=== PATIENT | female | born 1995 | race Two or more races ===

== ENCOUNTER 2018-03-26 02:51 | Day surgery (SDC) | payer OTHER ==
[2018-03-26 03:41] VITALS: BP 114/70; TEMP 97.8; BMI 29.4
--- NOTE | 2018-03-26 07:30 | PRG ---
DATE OF SERVICE: 03/26/2018 PRIMARY BEVERAGE MANAGER: Dr. Margaret Melo CHIEF COMPLAINT: Decreased movement. HISTORY OF PRESENT ILLNESS: The patient is a 22-year-old G2, P1 female with an intrauterine pregnanc y at 35 weeks and 3 days who is presenting to Labor and Delivery for decreased movement. She r eports that she has not felt the baby move throughout the day and has been concerned and came in for evaluation. The patient expressed no other complaints at this time. She did say earlier that she wa s having some numbness in her hands. The patient denies uterine contractions, vaginal bleeding, ross ge in discharge, urinary urgency or frequency, any recent illness or fall. She does have some nausea at times. No chest pain, shortness of breath, headache, no new rashes. PAST MEDICAL HISTORY: Negative. PAST SURGICAL HISTORY: Tonsillectomy. SOCIAL HISTORY: Denies drug, alcohol or tobacco use during the . REVIEW OF SYSTEMS: Per HPI. ALLERGIES: No known drug allergies. REVIEW OF SYSTEMS: Per HPI. PHYSICAL EXAMINATION: VITAL SIGNS: Blood pressure is 104/64, heart rate of 72, respiratory rate 18, satting 96-97% on room air, temperature 97.8. GENERAL: She appears to be in no acute distress. She is alert and oriented, cooperative and pleasan t to interact with. HEENT: Normocephalic, atraumatic. ABDOMEN: Soft, nontender. EXTREMITIES: Nontender, nonedematous. GENITOURINARY: exam has been deferred. heart tracing for decreased movement was performed for approximately 1 hour, baseline is noted to be in the 1-teens to 120s with moderate long-term variability, positive accelerations, no de celerations and nothing on the tocometer. ASSESSMENT AND PLAN: The patient is a 22-year-old G2, P1 female with an intrauterine at 35 weeks and 3 days, presenting for decreased movement. The patient has a reactive NST and categ ory 1 tracing. Reassurance has been given to the patient. She is being discharged to home and has be en encouraged to keep her appointment with Dr. Margaret Melo. Dr. Melo has been notified of this e ncounter and agrees with the plan.
== END 2018-03-26 04:43 | disposition home or self-care (01) ==
LOC: L&D/OP 02:51
PROVIDERS: ATTEND Obstetrics & Gynecology
DX: O36.8130 Decreased fetal movements, third trimester, not applicable or unspecified (principal); Z3A.35 35 weeks gestation of pregnancy; Z79.899 Other long term (current) drug therapy
CPT/HCPCS: 59025; 99282

== ENCOUNTER 2018-04-23 05:49 | Inpatient (IN) | payer OTHER, MEDICAID ==
[~2018-04-23 05:49] MED LIST: Bicitra 30 ML UDCUP PO SCH; CEFAZOLIN/Water 2 GM/20 ML SYRINGE SLOW IVP SCH; Docusate 100 MG CAP PO PRN; Ondansetron PF 4 MG/2 ML Vial IVP PRN; Promethazine HCl 25 MG/ML VIAL IM PRN; Zolpidem Tartrate 5 MG TAB PO PRN
[2018-04-23 06:22] VITALS: BMI 29.1
[2018-04-23] MEDS: Lactated Ringer's 1,000 ML IV SCH ×2 (06:29→21:42)
[2018-04-23 06:35] LABS: Hemoglobin 9.6 g/dL (12.0-16.0); Mean Corpuscular HGB CONC 33.3 g/dL (32.0-36.0); Mean Corpuscular Volume 84.2 fl (81.0-99.0); Mean Platelet Volume 7.8 fL (7.4-10.4); Platelet Count 319 thou/uL (130-400); Red Blood Cell (RBC) Count 3.44 mill/uL (4.20-5.40); White Blood Cell (WBC) Count 7.1 thou/uL (4.8-10.8)
[2018-04-23] MEDS ORDERED: Bupivacaine 0.75% W/DEXTROSE 8.25% 2 ML AMP ONE (06:58)
[2018-04-23] MEDS ORDERED: ePHEDrine/0.9% NaCl/PF SYRINGE 50 mg/10 ml ONE (07:00)
[2018-04-23] MEDS ORDERED: Morphine PF 1 MG/ML SYR ONE (07:00)
[2018-04-23] MEDS ORDERED: Oxytocin 10 UNITS/ML VIAL ONE (07:00)
[2018-04-23 07:06] LABS: Syphilis Antibody Nonreactive (Nonreactive); Syphilis Antibody Index 0.06 S/CO (<1.00 Non-Reactive)
[2018-04-23] MEDS ORDERED: Lidocaine 1% (PF) 30 ML VIAL ONE (07:12)
[2018-04-23 07:23] LABS: HBSAg Index 0.22 S/CO (0-0.99); Hep B Surf Ag Non-Reactive S/CO (NonReactive)
[2018-04-23] MEDS ORDERED: PHENYLEPHRINE-NS 100 MCG/ML 10 ML SYRINGE ONE (07:41)
[2018-04-23] MEDS ORDERED: Fentanyl 100 MCG/2 ML VIAL ONE (08:02)
[2018-04-23] MEDS ORDERED: HYDROmorphone 2 MG/ML VIAL SLOW IVP PRN (08:49)
[2018-04-23] MEDS ORDERED: Ondansetron HCl/PF 4 MG/2 ML Vial IVP PRN (08:49)
[2018-04-23] MEDS ORDERED: L&D-Morphine 4 MG/ML VIAL SLOW IVP PRN (08:49)
[2018-04-23] MEDS ORDERED: Meperidine HCl/PF 25 MG/ML VIAL SLOW IVP PRN (08:49)
[2018-04-23] MEDS ORDERED: Eucerin (Mineral Oil/Petrolatum,White) 30 gm Jar TOP PRN (08:50)
[2018-04-23] MEDS ORDERED: Naloxone HCl 0.4 mg/ml Vial IV PRN (08:50)
[2018-04-23] MEDS ORDERED: Promethazine HCl 25 MG/ML VIAL IM PRN (08:50)
[2018-04-23] MEDS ORDERED: diphenhydrAMINE 50 MG/ML VIAL IVP PRN (08:50)
[2018-04-23] MEDS ORDERED: Promethazine HCl 25 MG SUPP PR PRN (08:50)
[2018-04-23] MEDS ORDERED: Naloxone HCl 0.4 mg/ml Vial IVP PRN ×2 (08:50)
[2018-04-23] MEDS ORDERED: Ondansetron PF 4 MG/2 ML Vial IVP PRN ×2 (08:50→11:48)
[2018-04-23] MEDS ORDERED: Communication Order-Pharmacy FS SCH (09:00)
[2018-04-23] MEDS ORDERED: Ketorolac Tromethamine 30 MG/ML VIAL IVP SCH (09:00)
[2018-04-23] MEDS: Ketorolac Tromethamine 30 MG/ML VIAL IVP PRN ×3 (09:27→22:11)
[2018-04-23] MEDS ORDERED: Adacel (T-DAP) 0.5 ML VIAL IM ONE (11:48)
[2018-04-23] MEDS ORDERED: diphenhydrAMINE 25 MG CAP PO PRN (11:48)
[2018-04-23] MEDS ORDERED: Measles/Mumps/Rubella 10 MCG/0.5 ML VIAL SC ONE (11:48)
[2018-04-23] MEDS ORDERED: NS / Oxytocin 40 units/1000ml 1,000 ML IV SCH (11:48)
[2018-04-23] MEDS ORDERED: Lanolin Ointment 7 GM TUBE TOP PRN (11:48)
[2018-04-23] MEDS: Docusate Calcium (SURFAK) 240 MG CAP PO SCH ×2 (12:38→21:44)
[2018-04-23] MEDS: Ferrous Sulfate 325 MG TAB PO SCH ×2 (12:39→21:44)
[2018-04-23] MEDS: Prenatal Vitamin 1 TAB PO SCH (12:39)
[2018-04-23] MEDS ORDERED: Sodium Chloride 0.9% 10 ML ONE (22:32)
[2018-04-24] MEDS: Simethicone Chewable 80 MG TAB PO PRN ×2 (09:51→17:16)
[2018-04-24] MEDS: Prenatal Vitamin 1 TAB PO SCH (09:51)
[2018-04-24] MEDS: Docusate Calcium (SURFAK) 240 MG CAP PO SCH ×2 (09:51→20:56)
[2018-04-24] MEDS: Ferrous Sulfate 325 MG TAB PO SCH (09:51)
[2018-04-24] MEDS: HYDROcodone/Acetaminophen 5/325 mg Tablet PO PRN ×3 (09:51→20:53)
[2018-04-24] MEDS: Ibuprofen 800 MG TAB PO SCH ×2 (14:01→20:55)
[2018-04-25] MEDS: Ferrous Sulfate 325 MG TAB PO SCH ×2 (03:36→10:05)
[2018-04-25] MEDS: HYDROcodone/Acetaminophen 5/325 mg Tablet PO PRN ×2 (04:37→10:05)
[2018-04-25] MEDS: Ibuprofen 800 MG TAB PO SCH ×2 (06:12→14:36)
[2018-04-25 08:04] VITALS: BP 107/72; TEMP 97.9
[2018-04-25] MEDS: Prenatal Vitamin 1 TAB PO SCH (10:04)
[2018-04-25] MEDS: Docusate Calcium (SURFAK) 240 MG CAP PO SCH (10:05)
--- NOTE | 2018-05-02 13:46 | DN ---
DATE OF SERVICE: 04/23/2018 ADMITTING DIAGNOSES: 1. A 22-year-old G2, P1 at 39 weeks and 3 days with a scheduled repeat low transverse secti on. 2. Gestational anemia. 3. Late to care. 4. Group B Streptococcus negative. POSTOPERATIVE DIAGNOSES: 1. A 22-year-old G2, P1 at 39 weeks and 3 days with a scheduled repeat low transverse secti on. 2. Gestational anemia. 3. Late to care. 4. Group B Streptococcus negative. 5. Liveborn female weighing 6 pounds 6 ounces with Apgars of 8 and 9 at 1 and 5 minutes respectively . SURGEON: Margaret Melo M.D. SUBSTATION MECHANIC: Roel Aguilar M.D. ESTIMATED BLOOD LOSS: 500 mL ANESTHESIA: Spinal. CLINICAL HISTORY: This patient is a 22-year-old G2, P1 who presented later in her for care . She had an uneventful aside from an ortho injury to her left humerus from a traumatic fa ll, which required surgery in the second trimester. The patient underwent surgery under general anes thesia without any difficulties, however, had some other social issues that made it difficult for her to make it to appointments. The patient had several missed and rescheduled appointments throughout the . The patient had a history of a trial of labor for her first with rest for C PD. It was discussed that most likely the same would happen for this . The patient wished to proceed with a scheduled repeat low transverse section. The risks, benefits and possible complications were discussed for the procedure and the patient wished to proceed. DETAILS OF PROCEDURE: The patient was taken to the operating room where spinal anesthesia was obtain ed. She was laid in the supine position with a leftward tilt and she was prepped and draped and a Fo deniz catheter was placed with drainage of clear urine. After testing for adequate anesthesia, an inci crystal was made over the previous incision and carried down to the fascia. The fascia was nicked in th e midline and incision was extended bilaterally with sharp dissection. The Leonela clamps were used x 2 to elevate the superior fascial edge off the rectus muscles. Then the attention was turned down to the inferior edge where in similar fashion, the fascia was off the pyramidalis and rectus muscles. The rectus was in the midline and the peritoneum was then breached with the surge on's fingers. This incision was extended with a combination of sharp dissection and blunt traction. The bladder blade was then placed. A sweep over the anterior uterine surface revealed no adhesions. A bladder flap was created with Metzenbaum scissors and pickups and the bladder blade was placed po sterior to this bladder flap. The incision was then made over the lower uterine segment to the layer of the amnion and amniotomy was performed with clear fluid. The incision was then extended and the surgeon's hand was placed to deliver the head through the incision. Once the head was delivered, the re was noted a loose nuchal cord, which was reduced at the incision. The anterior shoulder followed by the posterior shoulder followed by the remainder of the infant's body was delivered. The cord was doubly clamped and cut and the infant cried spontaneously. The infant was shown to the parents and then placed into the bassinet for the Neonatology team in attendance to the delivery to tend to her. The uterus was then exteriorized after removal of the placenta intact with a 3-vessel cord and clean sed of all debris with a dry lap. Moist lap was used to anchor the uterus superiorly and the incisio n was closed in a running locking fashion with excellent hemostasis. An imbricating closure was then performed and then the bladder flap was closed in a running fashion. The gutters were cleansed of a ll debris. The anterior surface was then coated with Seprafilm in 4 pieces and the uterus was then p laced back into the abdomen and the peritoneum was closed in a running fashion and rectus muscles wer e reapproximated with [id number] interrupted sutures. Once this was performed, the fascia was c losed in a running fashion and the subcutaneous tissues were then cleansed with irrigation. The blee ding from the left subcutaneous fat was corrected with Bovie cautery and the fat was then reapproxima devyn in interrupted sutures with a 2-0 plain gut to close the space. The skin was then closed in a running fashion with 4-0 Monocryl with excellent hemostasis. Steri-Strips and Mastisol were place d for reinforcement and a Telfa with 2 padded Tegaderms were placed over the incision. The patient t olerated the procedure well. All needle, sponge, lap and instrument counts were correct x2 at the en d of the procedure. She was cleansed and redraped and expressed prior to transfer to [facility] and to her recovery room for continued care. The patient recovered with her infant. Again, it was a fem quin, weighing 6 pounds 6 ounces with Apgars of 8 and 9 at 1 and 5 minutes respectively. There were n o other issues surrounding this delivery.
== END 2018-04-25 19:25 | disposition home or self-care (01) | DRG 766 ==
LOC: L&D 05:49 → 3SW 11:51
PROVIDERS: ADMIT Obstetrics & Gynecology; ATTEND Obstetrics & Gynecology
PROC: 10D00Z1 Extraction of Products of Conception, Low, Open Approach (ICD-10-PCS; principal; 2018-04-23)
DX: O34.211 Maternal care for low transverse scar from previous cesarean delivery (principal); O26.893 Other specified pregnancy related conditions, third trimester; O99.02 Anemia complicating childbirth; O69.81X0 Labor and delivery complicated by cord around neck, without compression, not applicable or unspecified; D64.9 Anemia, unspecified; Z3A.39 39 weeks gestation of pregnancy; Z37.0 Single live birth
CPT/HCPCS: 51702; 85027; 86780; 86850; 86900; 86901; 87340; 90707; J1885; J2001; J2274; J2590; J3010; J3490

== ENCOUNTER 2018-12-18 23:30 | Day surgery (SDC) | payer OTHER ==
[2018-12-18 23:59] VITALS: BP 109/67; TEMP 98.9; BMI 29.0
--- NOTE | 2018-12-19 07:19 | SS ---
DATE OF ADMISSION: 12/18/2018 DATE OF DISCHARGE: 12/19/2018 REGULAR PHYSICIAN: Margaret Melo MD EVALUATING PHYSICIAN: Yogesh Reyes MD CHIEF COMPLAINT: Decreased movement. HISTORY OF PRESENT ILLNESS: Ms. Xie is a 23-year-old G3, P2-0-0-2 with an estimated date of confinement of 03/21/2018, who presents complaining of decreased movement over the evening. She denies ruptured membranes or vaginal bleeding. She had spoken with Dr. Aguilar over the phone and had tried kick counts at home , but it only felt that her baby moved a couple of times. She was instructed to come here for evaluation. Her care has been with Dr. Melo and she reports having had some small amount of 2nd trimester bleeding. PAST OBSTETRICAL HISTORY: Includes two previous sections, both at term. PAST MEDICAL HISTORY: None. PAST SURGICAL HISTORY: x2, shoulder surgery, and tonsillectomy. CURRENT MEDICATIONS: 1. vitamins. 2. Iron. ALLERGIES: NO KNOWN ALLERGIES. SOCIAL HISTORY: Denies tobacco or alcohol use. FAMILY HISTORY: Unremarkable. REVIEW OF SYSTEMS: Denies nausea, vomiting, fever, chills, vaginal bleeding, or ruptured membranes. PHYSICAL EXAMINATION: In triage, VITAL SIGNS: Stable and she is afebrile. GENERAL: She is well-appearing and in no acute distress. ABDOMEN: Soft, nontender, and gravid. PELVIC: Deferred. heart rate tracing is reassuring with no deceleration seen. Good [id number] variability is seen. No significant uterine contractions were seen. ASSESSMENT: 1. 26-6/7th week intrauterine . 2. Reassuring heart rate tracing. PLAN: The patient will be dismissed to home. She was given complete precautions. I did communicate with Dr. Aguilar, who agrees with the plan. Job ID: [id number] MTDD
== END 2018-12-19 00:35 | disposition home or self-care (01) ==
LOC: L&D/OP 23:30
PROVIDERS: ATTEND Obstetrics & Gynecology
DX: O36.8120 Decreased fetal movements, second trimester, not applicable or unspecified (principal); Z3A.26 26 weeks gestation of pregnancy; Z79.899 Other long term (current) drug therapy
CPT/HCPCS: 99283

== ENCOUNTER 2019-02-15 11:43 | Day surgery (SDC) | payer OTHER ==
[2019-02-15 12:23] VITALS: BP 114/66; TEMP 98.1
--- NOTE | 2019-02-15 12:46 | PDOC.LDHP ---
Labor and Delivery H&P Chief complaint: other (Headache) HPI: 23 yo @ 35.1 weeks presents for CC of headache. Pt reports headache has been present for one week and is not improved with tylenol. Reports headache unilateral on rt side and throbbing in nature. No associated weakness, numbness or tingling. Pt denies h/o migraines and has not had any headache issues thus far during . Currently rates pain 4-5/10. Additionally, pt reports some vvaginal bleeding she noticed when wiping after urination. She reports the bleeding has resolved and has not noted any further bleeding since AM. Reports pos movement and strip is very reactive, pos accels, no decels, or variables. Mod variability. ROS Gen: No fever/chills HEENT: reports headache CV: No CP Respiratory: denies SOB MSK: occasional cramping b/l LE Neuro: reports headache, denies weakness, numbness and tingling OB: pos movement, currently denies LOF, CTX, vaginal bleeding and vaginal discharge Current gestational age (weeks): 35 (35.1) Due date: 03/21/19 Dating criteria: last menstrual period Grav: 3 Para: 2 OB History Details: None, No clinic records available. Current complications: none Abnormal US findings: No Current medications: pre- vitamins Previous surgical history: low tranverse CS Allergies/Adverse Reactions: Allergies Allergy/AdvReac Type Severity Reaction Status Date / Time No Known Allergies Allergy Verified 12/18/18 23:55 Social history: none - Physical Exam Vital signs reviewed and normal: yes General: NAD, other (Neuro Exam: CNII-XII intact, moving all extremities, no focal deficit, reflexes 2+ throughout without clonus) Heart: RRR Lungs: CTAB Abdomen: NTTP FHT: category 1, variability present [place] contractions every: None - OB Labs Blood type: unknown RH: unknown Antibody Screen: unknown HIV: unknown RPR: unknown HEPSAg: unknown 1 hour GCT: unknown GBS: unknown Urine drug screen: not done - Assessment 1) headache: -given description, likely migraine - pts BP is WNL - will give 1L bolus LR - benadryl and reglan 12.5mg/10mg q30 min prn for headache. Benadryl to be given with doses #1 & #3 of reglan. Maximum 4 doses reglan 2) vaginal bleeding: unknown etiology, resolved - no urinary symptoms - baseline [id number] mod variability, pos accels, no late or variable decels Dispo: stable, will rx for migraine and monitor for symptom resolution. Addendum - Attending - Attending Attestation Date/Time: 02/15/192021 I personally evaluated the patient and discussed the management with Dr. Garcia. I agree with the History, Examination, Assessment and Plan documented above.
[2019-02-15] MEDS ORDERED: Acetaminophen 325 MG TAB PO PRN (13:12)
[2019-02-15] MEDS ORDERED: diphenhydrAMINE 50 MG/ML VIAL IVP PRN (13:13)
[2019-02-15] MEDS ORDERED: Lactated Ringer's 1,000 ML IV SCH (13:15)
[2019-02-15] MEDS: Metoclopramide HCl 10 MG/2 ML VIAL IVP PRN ×2 (13:46→14:17)
--- NOTE | 2019-02-15 15:10 | PDOC.EVN ---
Event Note - Event Note Event Note: Pt reassessed. Sleeping on entering room when asked to rate hedache pain reports 3/10 and overall improvement. Will allow benadryl effects to wean and give PO tylenol after rest. Ok for DC to home when benadryl effects wane. VSS stable and BP remains WNL.
== END 2019-02-15 18:30 | disposition home or self-care (01) ==
LOC: L&D/OP 11:43
PROVIDERS: ATTEND Obstetrics & Gynecology
DX: O99.89 Other specified diseases and conditions complicating pregnancy, childbirth and the puerperium (principal); R51 Headache; O46.93 Antepartum hemorrhage, unspecified, third trimester; Z3A.35 35 weeks gestation of pregnancy; Z79.899 Other long term (current) drug therapy
CPT/HCPCS: J1200; J2765

== ENCOUNTER 2019-03-17 06:11 | Day surgery (SDC) | payer OTHER ==
[2019-03-17 07:08] VITALS: BP 115/60; TEMP 97.8
[2019-03-17 07:11] VITALS: BMI 30.2
--- NOTE | 2019-03-17 07:57 | PDOC.EVN ---
Event Note - Event Note Event Note: H[employer]IS [employer] Worker Time: 634 Location: L&D Triage CC: CTX at term, prior CS x2 Patient is scheduled for repeat CS at [facility] tomorrow (desires BTL, per Dr Melo) Course of events: As the patient is 3cm with complaint of CTX, I suggested we call Dr Melo directly for direct admission for possible CS today here. Dr Melo has recommended DC to home with office follow up to see if CS can be done today at [facility]. Case discussed with Dr Melo and RN team verbally. I have recommended Dr Melo eval the patient at bedside to determine if ok for DC to home. I will await Dr Kameron holm at bedside. I have seen the patient at bedside and I have notifed
--- NOTE | 2019-03-17 09:49 | PRG ---
DATE OF SERVICE: 03/17/2019 TIME OF SERVICE: 0830 hours. CHIEF COMPLAINT: Contractions at term. HISTORY OF PRESENT ILLNESS: Ms. Xie is a 23-year-old 3, para 2, with EDC of 03/21 placing her at 39-40 weeks gestation. She is scheduled for repeat section for prior section x2, desiring permanent sterilization at [facility] tomorrow with anticipated midsegment salpingectomy. She presented this morning to Labor and Delivery at [facility] complaining of contractions. She denied rupture of membranes. She reported active fetus. She denied headache, scotoma, or blurred vision. 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 MEDICAL HISTORY: None. SURGICAL HISTORY: x2, shoulder and tonsils. MEDICATIONS: vitamins and iron. ALLERGIES: DENIES. SOCIAL HISTORY: Denies tobacco, alcohol, or drug use. FAMILY HISTORY: Noncontributory. REVIEW OF SYSTEMS: Noncontributory. PHYSICAL EXAMINATION: GENERAL: Female. VITAL SIGNS: Temperature 97.4, pulse 77, respirations 18, blood pressure 115/60. HEENT: Within normal limits. LUNGS: Clear to auscultation bilaterally. HEART: Regular rate and rhythm. ABDOMEN: Soft. It is nontender with occasional indentable contractions q.5 minutes. No CVA tenderness is noted. EXTREMITIES: No clubbing, cyanosis, or edema. GENITALIA: Vulva without lesions. Vagina is without discharge. Cervix is 3, 75 to 80, -2, ballots with ease, cephalic. The patient was brought on to the Labor and Delivery here at approximately 0600 hours. She received 1 L of IV fluids. With 1 L of IV fluids, contractions which were initially q.5 minutes spaced out to q.10 and became less intense. The patient had a category 1 heart rate tracing throughout. No evidence of active labor was noted, and it is felt that physical exam is most consistent with latent or prodrome labor. IMPRESSION: Prodromal/latent labor at 39 to 40 weeks gestation. PLAN: Discussed with the patient her options. Considering the patient's desire for sterilization and the inability for this facility to offer this, it seemed reasonable rather than having the patient leave against medical advice to have the patient discharged for immediate followup with Dr. Margaret Melo's office within the hour. I discussed this with the patient and with Dr. Melo, and they both agreed to this care plan. The patient will be discharged home, re-evaluate at Dr. Melo's office and either undergo repeat section today or tomorrow at [facility]. Job ID: [id number]
== END 2019-03-17 08:24 | disposition home or self-care (01) ==
LOC: L&D/OP 06:11
PROVIDERS: ATTEND Obstetrics & Gynecology
DX: O47.1 False labor at or after 37 completed weeks of gestation (principal); Z3A.39 39 weeks gestation of pregnancy; Z30.2 Encounter for sterilization; Z79.899 Other long term (current) drug therapy
CPT/HCPCS: 99282